=== PATIENT | female | born 1940 | race Caucasian/White ===

== ENCOUNTER 2023-02-14 14:52 | Inpatient (IN) | payer MEDICARE, SELFPAY ==
[2023-02-14] VITALS (47 sets, daily range): BP systolic 120–169; BP diastolic 51–107; PULSE 56–150; RESP 2–40; TEMP 37.3–37.6; O2SAT 87–96
--- NOTE | 2023-02-14 15:15 | RT.EKG_ITS ---
APPROVED REPORT Exam: Resting ECG Reason for Exam: dyspnea Patient Location: E HR:77 bpm ECG Measurements Heart Rate 77 AXIS HI [id number] P [id number] QRSd 94 QRS 204 QT 357 T 2 QTc 404 Conclusion Afib/flut and V-paced complexes...other complexes, A-rate>240 Right axis deviation...QRS axis ( 91,269) Repol abnrm suggests ischemia, anterolateral...ST dep, T neg, I aVL V2-V6 Borderline ST elevation, lateral leads...ST >0.06mV, I aVL V5 V6
--- NOTE | 2023-02-14 15:20 | NUR.NOTE ---
Nursing Note: O2 sat 88% on RA. Pt placed on 2L NC and 93% at this time
--- NOTE | 2023-02-14 15:31 | W.ED.GENAD ---
Discharge Plan Disposition Patient Disposition: Admit to [facility] Condition: Serious Discharge Details Chief Complaint: SOB Clinical Impression: Hypoxia, Pneumonia, Shortness of breath Primary Care Provider: David Rivera ED Provider: Fidel Perez Raymond Meds and New Rx's Prescriptions: No Action atorvastatin [Lipitor] 80 mg Tablet 80 mg PO QHS miconazole nitrate 2 % Powder TOPICAL QSHIFT cyanocobalamin (vitamin B-12) 1,000 mcg Tablet 1,000 mcg PO QDAY docusate sodium 50 mg Capsule PO QDAY diltiazem HCl 360 mg Capsule,Extended Release 24hr 360 mg PO QDAY levothyroxine 100 mcg Tablet 100 mcg PO QDAY pantoprazole [Protonix] 40 mg Tablet,Delayed Release (Dr/Ec) 40 mg PO QHS metoprolol tartrate 50 mg Tablet 50 mg PO BID digoxin 125 mcg (0.125 mg) Tablet 125 mcg PO QDAY ferrous sulfate 324 mg (65 mg iron) Tablet,Delayed Release (Dr/Ec) PO QDAY apixaban 5 mg Tablet 5 mg PO BID Medical Decision Making 82 yo female who was sent to [facility] rehab from a stay at [facility] per health and rehab records comes in with cc of cough for a day and shortness of breath and today oxygen saturations were around 88%. PAtient arrives hypoxic to 88% on room air, unclear what her baseline is, is 95% on NC. She has her eyes closed during the entire h and p. She doesn't provide much information other than answering some questions with 1-2 word answers. She answers no when I ask her if she knows where she is or the year. She is able to move both arms and legs though minimally due to weakness. She has wheezing and rhonchi in both lungs on exam. No appreciable jvd, soft nontender abdomen. Given her age and presentation will proceed with ekg/troponin, probnp, cmp, cbc, portable chest and also trial duoneb. If no significant findings on this initial workup will consider obtaining cta for pe if renal function is adequate though she has no evidence of dvt on exam. Records from rehab show she is dnr and will attempt to get records from [facility] as well d/c summary from [facility] on 02/03 notes she was admitted for just over a month after having a cva. She has a hx of prior cva's, htn, cad, afib, tachybradycardia syndrome s/p ppm. 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 D/c summary noted she was altert and oriented on d/c with severe left hemineglect and weakness and would speak in 1-2 word sentences which is how she presents today. Labs show mild increase in troponin, probnp over 5000, wbc of 17. Xray not clear if infiltrates vs scarring vs atelectasis, will proceed with cta of the chest. cta shows likely bilateral infiltrates, zosyn ordered, and question of edema. She was given 20mg lasix earlier with good urinary output. She is hemodynamically stable, still requiring oxygen, will discuss with hospitalist about admission Differential Diagnosis Differential Diagnosis: pneumonia, covid, asthma Imaging Data Radiologic Study: Attestation: I personally reviewed and interpreted this imaging study as follows: Imaging: X-Ray My impression: no acute findings Radiologic Study #2: Attestation: I personally reviewed and interpreted this imaging study as follows: Imaging: CT Scan Radiologist's impression: 1. No evidence of pulmonary embolus 2. Scattered diffuse bilateral infiltrates suggesting infectious pneumonitis 3. Peribronchovascular thickening and interlobular septal thickening in the lower lungs which could reflect interstitial pulmonary edema and/or bronchiolitis 4. Cardiomegaly with chronic osseous and atherosclerotic changes as described Lab Data Lab results reviewed: Yes I reviewed the patient's lab results. ECG Data Attestation: I personally reviewed and interpreted this ECG (s) as follows: Prior ECG tracings: not available for review Interpretation: afib, v paced, rate of 77, no stemi HPI General Mode of arrival: EMS. Date/Time Provider Initiated Documentation: 02/14/23 14:55. Information obtained by: EMS. History of Present Illness 82 year old F presents to the emergency department with the chief complaint of cough and dyspnea, described as moderate, Patient started experiencing this day(s) (1) and it has been constant. No relieving factors improve symptom(s), No exacerbating factors reported . Patient notes denies fever/chills. Patient did receive the following treatments prior to arrival, none Related Data Home Medications Medication Instructions Recorded Confirmed apixaban 5 mg tablet 5 mg PO BID 02/14/23 02/14/23 atorvastatin 80 mg tablet (Lipitor) 80 mg PO QHS 02/14/23 02/14/23 cyanocobalamin (vitamin B-12) 1,000 mcg PO QDAY 02/14/23 02/14/23 1,000 mcg tablet digoxin 125 mcg (0.125 mg) tablet 125 mcg PO QDAY 02/14/23 02/14/23 diltiazem HCl 360 mg 360 mg PO QDAY 02/14/23 02/14/23 capsule,extended release 24 hr docusate sodium 50 mg capsule mg PO QDAY 02/14/23 ferrous sulfate 324 mg (65 mg mg PO QDAY 02/14/23 iron) tablet,delayed release levothyroxine 100 mcg tablet 100 mcg PO QDAY 02/14/23 02/14/23 metoprolol tartrate 50 mg tablet 50 mg PO BID 02/14/23 02/14/23 miconazole nitrate 2 % topical topical QSHIFT 02/14/23 powder pantoprazole 40 mg tablet,delayed 40 mg PO QHS 02/14/23 02/14/23 release (Protonix) Allergies Allergy/AdvReac Type Severity Reaction Status Date / Time morphine Allergy Unverified 02/14/23 15:31 shellfish derived Allergy Unverified 02/14/23 15:31 tositumomab iodine-131 Allergy Unverified 02/14/23 15:31 General Stated Complaint: SOB SALOMÓN: 3 Review of Systems All systems reviewed & are unremarkable except as noted in HPI and below Constitutional Constitutional: Denies chills and Denies fever(s) Cardiovascular Cardiovascular: Denies chest pain Gastrointestinal Gastrointestinal: Denies abdominal pain and Denies vomiting Integumentary/Breasts Skin/Breast: Denies rash PFSH All Active Problems (Updated 02/14/23 @ 18:58 by Fidel Perez MD) Hypoxia (Acute) Pneumonia (Acute) Shortness of breath (Acute) Social History Smoking/Tobacco Use Status: Never Smoking risk assessment performed?: Yes Alcohol Intake: never Substance use type: does not use Do you feel safe at home: Yes Do you feel safe in your relationship?: Yes Exam Const General: no acute distress Orientation: alert HENRI Head: normal to inspection Ears: external ears normal General nose exam: external nose normal Mouth: moist mucous membranes Eyes General: appearance normal, both eyes and all related structures Neck Neck: normal visual inspection Resp Auscultation: rhonchi and wheezes Cardio Rate: regular rate Skin General skin exam: no rashes or lesions noted Neuro General: other (eyes closed, will answer some questions with 1-2 word answers) Extrem General: normal to inspection Psych Mental Status: mental status grossly normal Course Vital Signs Vital signs: Vital Signs Temperature 37.6 C 02/14/23 15:13 Pulse 74 02/14/23 15:13 Blood Pressure 162/61 H 02/14/23 15:13 Pulse Oximetry 88 L 02/14/23 15:13 Temperature 37.6 C 02/14/23 15:13 Temperature Source Rectal 02/14/23 15:13 Pulse 74 02/14/23 15:13 Blood Pressure 162/61 H 02/14/23 15:13 Blood Pressure Position Supine 02/14/23 15:13 Pulse Oximetry 88 L 02/14/23 15:13 Oxygen Delivery Method Room Air 02/14/23 15:13 Oxygen Flow Rate 0 02/14/23 15:13 Lab/Test Results Lab/Test Results: 02/14/23 15:24 Blood Blood Culture - Pending 02/14/23 15:24 Blood Blood Culture - Pending
[2023-02-14 15:34] LABS: BE (Venous) 4 mmol/L (-2-3); HCO3 (Venous) 29 mmol/L (23-28); O2 Sat (Venous) 96 %; TCO2 (Venous) 26 mmol/L (24-29); pCO2 (Venous) 45 mmHg (41-51); pH (Venous) 7.42 (7.31-7.41); pO2 (Venous) 85 mmHg
[2023-02-14 15:43] LABS: Abs Immature Grans 1.63 10^3/uL (0.0-0.06); HCT 40.2 % (36.0-46.0); HGB 12.2 g/dL (11.2-15.7); MCH 27.2 pg (27.0-33.0); MCHC 30.3 % (32.0-36.0); MCV 90 fL (80-95); MPV 10.4 fL (8.0-11.0); Platelet Count 212 10^3/uL (130-400); RBC 4.48 10^6/uL (3.93-5.22); RDW 19.6 % (11.7-14.6); RDW-SD 64.2 fL; WBC 17.41 10^3/uL (4.4-10.8)
--- NOTE | 2023-02-14 15:46 | DI.RAD_ITS ---
Exam(s) XR PORTABLE CHEST AP EXAM: XR PORTABLE CHEST AP CLINICAL HISTORY: cough TECHNIQUE: 2D digital imaging was performed. COMPARISON: No exams were available for comparison FINDINGS: Exam limited by poor pulmonary inflation. LUNGS: Question patchy bilateral infiltrates versus chronic interstitial changes.. No pleural abnorm ality seen. HEART: Mildly enlarged. Mitral annular calcification. Pacemaker. Status post CABG. AORTA: Normal diameter. BONES: Unremarkable for age. Sternal wires. Severe degenerative changes in the spine. Soft tissues: Unremarkable. Surgical clips right upper quadrant. IMPRESSION: Question of patchy bilateral infiltrates versus chronic interstitial changes. DATA REPOSITORY: RADIATION DOSE DELIVERED:
[2023-02-14 15:49] LABS: INR 1.2 (0.9-1.1); PTT Activated 33.4 sec (21.5-31.9); Prothrombin Time 12.1 sec (9.3-11.0)
[2023-02-14 15:52] LABS: Absolute Lymphocyte Count 1.22 10^3/uL (1.2-3.4); Absolute Monocyte Count 1.74 10^3/uL (0.1-0.8); Absolute Neutrophil Count 13.58 10^3/uL (1.2-6.7); Bands % 18; Diff Comment Manual Differential; Metamyelocytes % 4; Myelocytes % 1
[2023-02-14 15:53] LABS: Anisocytosis 1+; Polychromasia Present
[2023-02-14 16:00] LABS: ALT 20 U/L (14-59); AST 18 U/L (15-37); Albumin 2.8 g/dL (3.4-5.0); Alkaline Phosphatase 110 U/L (46-116); Anion Gap 9.6 mmol/L (3-11); BUN 32 mg/dL (7-18); Bilirubin, Total 0.7 mg/dL (0.2-1.0); CO2 29.4 mmol/L (21.0-32.0); CREATININE 1.3 mg/dL (0.55-1.02); Calcium 9.6 mg/dL (8.5-10.1); Chloride 105 mmol/L (98-107); Estimated GFR 40.55 (mL/min/1.73m2); Glucose 185 mg/dL (74-106); NT-proBNP 5711 pg/mL (<300); Potassium 3.4 mmol/L (3.5-5.1); Sodium 144 mmol/L (136-145); TSH (W/Ref FT4) 1.02 uIU/mL (0.36-3.74); Total Protein 7.3 g/dL (6.4-8.2)
--- NOTE | 2023-02-14 16:00 | DI.CT_ITS ---
Exam(s) CT CHEST PE CTA EXAM: CT CHEST PE CTA CLINICAL HISTORY: ?pe, hypoxia. TECHNIQUE: Imaging Protocol: Axial CT angiography was performed with multi-slice acquisition and mu lti-planar and/or 3D reconstructions. CONTRAST MATERIAL: Intravenous: Omnipaque 350 contrast volume:100 mL COMPARISON: CR XR PORTABLE CHEST AP from 02/14/2023 FINDINGS: The examination is limited due to patient motion artifact. Tracheobronchial tree: Patent where visualized. Pulmonary parenchyma: Multifocal ground-glass infiltrates are seen. Centrilobular emphysema is prese nt. Dependent infiltrates are seen in the lung bases. This may represent atelectasis or pneumonia. Pulmonary Arteries: No evidence of filling defect to suggest pulmonary emboli. Mediastinum and Araceli: No dominant adenopathy or fluid collection. The esophagus is unremarkable. Visualized thyroid gland: Unremarkable. Pleura: No effusion or pneumothorax. Heart: Cardiomegaly. Coronary artery calcifications and/or stents are present. There is calcificati on of the mitral valve. No pericardial effusion. Aorta: Thoracic aorta non-dilated. No evidence of dissection. Atherosclerosis is present. Upper abdomen: Status post cholecystectomy. Tubes, Catheters, and Lines: Cardiac pacing device is present. Soft tissues: Unremarkable. Bones: Within normal limits for the patient's age. IMPRESSION: 1. No evidence of pulmonary embolism, thoracic aortic dissection or aneurysm. 2. Diffuse multifocal ground-glass infiltrates suspicious for infectious pneumonia. 3. Cardiomegaly. RADIATION DOSE DELIVERED: 319.92mGy.cm Total DLP DATA REPOSITORY: All CT scans at this facility are submitted to the National Radiology Data Registry (NRDR) Dose Index Registry (DIR) with the [employer] ([employer]). RADIATION OPTIMIZATION: All CT scans at this facility use at least one of these dose optimization te chniques: automated exposure control; mA and/or kV adjustment per patient size (includes targeted exa ms where dose is matched to clinical indication); or iterative reconstruction.
[2023-02-14 16:04] LABS: Troponin I 96 ng/L (<or=60)
[2023-02-14 16:06] LABS: Procalcitonin 0.4 ng/mL
[2023-02-14 16:25] LABS: COVID-19 PCR Negative (Negative); Influenza A PCR Negative (Negative); Influenza B PCR Negative (Negative); RSV PCR Negative (Negative); Source Nasopharynx
[2023-02-14] MEDS: Furosemide 20 MG/2 ML VIAL IVP (16:29)
[2023-02-14] MEDS: Normal Saline - Diluent 50 ML VIAL IJ (17:27)
[2023-02-14] MEDS: Omnipaque 350 MG/ML 100 ML BTL IJ (17:29)
--- NOTE | 2023-02-14 18:25 | DI.VRAD_ITS ---
PROCEDURE INFORMATION: Exam: CTA Chest With Contrast Exam date and time: 02/14/2023 5:12 PM Age: 82 years old Clinical indication: Other: ? Pe, hypoxia TECHNIQUE: Imaging protocol: Computed tomographic angiography of the chest with contrast. 3D rendering (Not supervised by radiologist): MIP and/or 3D reconstructed images were created by the technologist. Radiation optimization: All CT scans at this facility use at least one of these dose optimization techniques: automated exposure control; mA and/or kV adjustment per patient size (includes targeted exams where dose is matched to clinical indication); or iterative reconstruction. Contrast material: OMNIPAQUE 350; Contrast volume: 100 ml; Contrast route: INTRAVENOUS (IV); COMPARISON: CR XR PORTABLE CHEST AP 02/14/2023 3:18 PM FINDINGS: Tubes, catheters and devices: Cardiac pacemaker is in place. Pulmonary arteries: Normal. No pulmonary emboli. Aorta: Moderate atherosclerotic calcification noted throughout the aorta. No evidence of aortic aneurysm or dissection. Lungs: Mild changes of emphysema noted primarily in the upper lungs. Small scattered areas of alveolar infiltrate are noted throughout both lungs. Peribronchovascular thickening noted in the lower lungs. There is dense consolidative atelectasis in the dependent portion of the left lower lobe. Pleural spaces: Unremarkable. No pneumothorax. No pleural effusion. Heart: There is mild cardiomegaly. There is dense calcification of the mitral annulus. Coronary arteries: Moderate coronary artery calcification. Lymph nodes: Unremarkable. No enlarged lymph nodes. Bones/joints: Degenerative changes and osteophyte formation noted throughout the spine. Soft tissues: Unremarkable. IMPRESSION: 1. No evidence of pulmonary embolus 2. Scattered diffuse bilateral infiltrates suggesting infectious pneumonitis 3. Peribronchovascular thickening and interlobular septal thickening in the lower lungs which could reflect interstitial pulmonary edema and/or bronchiolitis 4. Cardiomegaly with chronic osseous and atherosclerotic changes as described Dictated and Authenticated by: Abebe Kuhn MD. Ordering:ARNULFO Parra MD
[2023-02-14] MEDS: PIPERACILLIN/TAZO 4.5 GM in Normal Saline 100 ML IVPB (19:20)
[2023-02-14 19:42] LABS: Troponin I 97 ng/L (<or=60)
--- NOTE | 2023-02-14 19:51 | W.PM.HP.N ---
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 She ignores her left side. She has been hospitalized and in rehab just recently now with cough and progressive symptoms with bilateral pneumonia by CT. She also may have some interstitial edema and does have a history of possible diastolic dysfunction heart failure though the ED provider did see an echocardiogram revealing mostly preserved left ventricular ejection fraction. She does have significant valvular disease and because of her pneumonia may have increased troponin secondary to strain along with hypoxemia. She will be treated aggressively for hospital-acquired pneumonia with vancomycin pharmacy dosing and cefepime avoid Zosyn with vancomycin with increased chance of renal dysfunction. She already has slight increase in her baseline creatinine. Oxygen supplementation with nebulizers if needed. She will be gently hydrated watch for fluid overload with IV Lasix as needed. Son understands prognosis with the patient already having significant heart disease and now with pneumonia status post devastating CVA with patient living independently prior to this recent admission with stroke. She is a DNR/DNI. (2) Hypoxia: Start date: 02/14/23 Status: Acute Assessment and plan: Secondary to respiratory status with pneumonia possible interstitial edema. Oxygen supplementation to keep pulse oximeter above 90%. Comfort measures. Patient is allergic to morphine and this will be avoided. (3) Elevated troponin level not due to acute coronary syndrome: Start date: 02/14/23 Status: Acute Assessment and plan: Only slight elevation in troponins with patient having significant history of CAD without evidence of acute ischemia. We will attempt to keep her heart rate controlled despite her respiratory distress. Son understands prognosis is poor with recent events and now hospital-acquired pneumonia. Trend troponins. Patient will continue on Eliquis. Attempt heart rate control with gentle hydration and oral medications. (4) CAD (coronary artery disease), [place] coronary artery: Assessment and plan: Slight elevation in troponins but this is most likely secondary to heart strain with pneumonia. Trend troponins and attempt heart rate control as well as watch closely for heart failure which is usually diastolic dysfunction according to son with significant mitral valve disease. Patient is on Eliquis which will be continued. (5) Atrial fibrillation with controlled ventricular rate: Assessment and plan: Patient had slight tachycardia but usually is rate controlled with significant dosing of Lanoxin, metoprolol and Cardizem as an outpatient. Split dose of Cardizem at 90 mg every 6 hours and continue metoprolol twice daily along with Lanoxin daily. Patient was given IV diltiazem in the ED and gentle IV hydration might help her tachycardia. (6) Hypothyroidism (acquired): Assessment and plan: Stable on supplement which will be continued the same. History of Present Illness History of Present Illness Chief Complaint: Cough with hypoxemia and tachypnea Narrative: This is an 82-year-old female patient who recently was at [facility] with a stroke involving the right MCA with a thrombectomy once and then recurrent thrombus and left side flaccidity not moving her left arm or leg and ignoring her left side. She has been in rehab at a local facility and 3 days prior to admission began to have a cough with the day prior to admission having tachypnea with cough and hypoxemia on the day of admission. In the ED she did have evaluation was found to have bilateral pneumonia with question of interstitial pulmonary edema and did receive Lasix in the ED. She does appear dry with a creatinine higher than her baseline and clinically appears dry. She is pleasantly confused and attended by her middle son who is concerned about her course after her stroke having been living independently prior to her CVA and admission to [facility] about a month ago and now not recovering well with hospital-acquired pneumonia prompting this admission. She is a DNR/DNI and he does understand we will need to treat reversible issues and that she may need some fluid even though he is concerned about fluid overload which may be secondary to diastolic dysfunction with her severe mitral valve disease. She also has chronic atrial fibrillation and in the ED was becoming slightly tachycardic with her diltiazem split dosed. She is allergic to morphine which will be avoided. We will keep her comfortable and possibly need to use Ativan if she becomes distressed. She has a Yuan catheter in place and can receive Lasix as needed as we try to gently rehydrate following clinical status and labs closely. She is tugging with breathing but speaking comfortably though she is confused because she is is still at [facility]. Her past medical problems include significant CAD status post bypass surgery with mitral valve disease which has not been surgically treated. She did have a slight bump in her troponins which will be trended most likely secondary to cardiac strain with her pneumonia. She also has a pacemaker for tachybradycardia syndrome. As stated she is a DNR/DNI but not comfort measures only at this time. Review of Systems Narrative: 13 point review of systems negative for any peripheral edema, she has had no fever or rigors otherwise as per present illness or unrevealing. Patient is unable to offer further history with her son offering history at this time. PFSH All Active Problems (Updated 02/14/23 @ 23:17 by Gabino Giordano) Elevated troponin level not due to acute coronary syndrome (Acute) CVA (cerebral vascular accident) (Chronic) Hypoxia (Acute) Pneumonia (Acute) Shortness of breath (Acute) Medical History (Updated 02/14/23 @ 23:17 by Gabino Giordano) Atrial fibrillation with controlled ventricular rate CAD (coronary artery disease), [place] coronary artery HTN (hypertension) Hypothyroidism (acquired) Tachy-inessa syndrome Social History Smoking/Tobacco Use Status: Never Smoking risk assessment performed?: Yes Alcohol Intake: never Substance use type: does not use Do you feel safe at home: Yes Do you feel safe in your relationship?: Yes Meds Allergies and Home Medications Allergies Allergy/AdvReac Type Severity Reaction Status Date / Time morphine Allergy Unverified 02/14/23 15:31 shellfish derived Allergy Unverified 02/14/23 15:31 tositumomab iodine-131 Allergy Unverified 02/14/23 15:31 Home Medications Medication Instructions Recorded Confirmed Type apixaban 5 mg tablet 5 mg PO BID 02/14/23 02/14/23 History atorvastatin 80 mg tablet (Lipitor) 80 mg PO QHS 02/14/23 02/14/23 History cyanocobalamin (vitamin B-12) 1,000 mcg PO QDAY 02/14/23 02/14/23 History 1,000 mcg tablet digoxin 125 mcg (0.125 mg) tablet 125 mcg PO QDAY 02/14/23 02/14/23 History diltiazem HCl 360 mg 360 mg PO QDAY 02/14/23 02/14/23 History capsule,extended release 24 hr docusate sodium 50 mg capsule mg PO QDAY 02/14/23 History ferrous sulfate 324 mg (65 mg mg PO QDAY 02/14/23 History iron) tablet,delayed release levothyroxine 100 mcg tablet 100 mcg PO QDAY 02/14/23 02/14/23 History metoprolol tartrate 50 mg tablet 50 mg PO BID 02/14/23 02/14/23 History miconazole nitrate 2 % topical topical QSHIFT 02/14/23 History powder pantoprazole 40 mg tablet,delayed 40 mg PO QHS 02/14/23 02/14/23 History release (Protonix) Exam Narrative Exam Narrative: General: Patient appears older than stated age, moderately obese lying in bed with the head tilted slightly backward and mouth open mouth breathing with talking respirations. She is not having a cough. She is alert and oriented to person but denies #and that she is at the hospital but thought she was at [facility] instead of at [facility]. She is in moderate distress with her breathing. She is ignoring her left side. She is restless moving her right upper and lower extremities. HEENT: Normocephalic, eyes with pupils equal and reactive light symmetrically, extraocular movement tact and sclera anicteric. Left eye is slightly wandering when first opened. Oropharynx with dry mucosa and poor dentition with missing teeth. Patient is mouth breathing. Neck: Supple without JVD. No palpable carotid thrills. Back: Kyphotic without CVA tenderness. Lungs: Diffuse inspiratory rhonchi and coarse crackles without focalizing but no increased expiratory phase and no expiratory wheeze. Decreased aeration diffusely. Patient is tachypneic. She has occasional moist cough. Breast: Exam deferred. Heart: Irregularly irregular rhythm with tachycardia at the time my exam, 3/6 to 4/6 holosystolic murmur over apex and left sternal border. Well-healed scars over the sternum and left upper chest with palpable subcutaneous pacemaker left upper chest. No gallop appreciated. Abdomen: Slightly protuberant, soft with slight tenderness to palpation over the lower abdomen but no palpable masses and no rebound. Slight guarding right lower quadrant. Bowel sounds positive but decreased diffusely. No tympany to percussion. Genitalia/rectal:: Exam deferred. Patient does have Yuan catheter in place. Extremities: Without clubbing, cyanosis or grossly pitting edema. 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 Peripheral pulses decreased and irregular pulse. Fair cap refill. Arthritic changes of joints. Skin: Normal color, warm and dry without tenting. Neuro: Patient is moving her left side and flaccid over the left side moving her right upper and lower extremity irregularly but appearing uncomfortable. Cranial nerves II through XII appear to be grossly intact. No Babinski's. Psych: Flattened affect with mood not assessable with patient's confusion and acute respiratory distress. No abnormal thought processes. Remote and recent memory not testable with patient acutely ill. Results Labs 02/14/23 15:19 02/14/23 15:19 Labs: Laboratory Results - last 24 hr 02/14/23 02/14/23 02/14/23 15:19 15:19 15:19 WBC 17.41 H RBC 4.48 Hgb 12.2 Hct 40.2 MCV 90 MCH 27.2 MCHC 30.3 L RDW 19.6 H Plt Count 212 MPV 10.4 Immature Gran % See Differential Neutrophils % 60.0 Band Neutrophils % 18 Lymphocytes % 7.0 Monocytes % 10.0 Eosinophils % 0.0 Basophils % 0.0 Metamyelocytes % 4 Myelocytes % 1 Nucleated RBC % 0.0 Absolute Neutrophils 13.58 H Absolute Lymphocytes 1.22 Absolute Monocytes 1.74 H Absolute Eosinophils 0.00 Absolute Basophils 0.00 RBC Morphology See Below Polychromasia Present Anisocytosis 1+ PT INR APTT VBG pH VBG pCO2 VBG pO2 VBG HCO3 VBG Total CO2 VBG O2 Saturation VBG Base Excess Sodium 144 Potassium 3.4 L Chloride 105 Carbon Dioxide 29.4 Anion Gap 9.6 BUN 32 H Creatinine 1.3 H Est GFR (CKD-EPI 2020) 40.55 Glucose 185 H Calcium 9.6 Magnesium Total Bilirubin 0.7 AST 18 ALT 20 Alkaline Phosphatase 110 Troponin I 96 H* NT-Pro-B Natriuret Pep 5711 H Total Protein 7.3 Albumin 2.8 L Procalcitonin 0.4 TSH 1.02 COVID-19 Source SARS-CoV-2 (PCR) Influenza Type A (PCR) Influenza Type B (PCR) RSV (PCR) 02/14/23 02/14/23 02/14/23 15:19 15:19 15:19 WBC RBC Hgb Hct MCV MCH MCHC RDW Plt Count MPV Immature Gran % Neutrophils % Band Neutrophils % Lymphocytes % Monocytes % Eosinophils % Basophils % Metamyelocytes % Myelocytes % Nucleated RBC % Absolute Neutrophils Absolute Lymphocytes Absolute Monocytes Absolute Eosinophils Absolute Basophils RBC Morphology Polychromasia Anisocytosis PT 12.1 H INR 1.2 H APTT 33.4 H VBG pH 7.42 H VBG pCO2 45 VBG pO2 85 VBG HCO3 29 H VBG Total CO2 26 VBG O2 Saturation 96 VBG Base Excess 4 H Sodium Potassium Chloride Carbon Dioxide Anion Gap BUN Creatinine Est GFR (CKD-EPI 2020) Glucose Calcium Magnesium 2.0 Total Bilirubin AST ALT Alkaline Phosphatase Troponin I NT-Pro-B Natriuret Pep Total Protein Albumin Procalcitonin TSH COVID-19 Source SARS-CoV-2 (PCR) Influenza Type A (PCR) Influenza Type B (PCR) RSV (PCR) 02/14/23 02/14/23 15:38 19:15 WBC RBC Hgb Hct MCV MCH MCHC RDW Plt Count MPV Immature Gran % Neutrophils % Band Neutrophils % Lymphocytes % Monocytes % Eosinophils % Basophils % Metamyelocytes % Myelocytes % Nucleated RBC % Absolute Neutrophils Absolute Lymphocytes Absolute Monocytes Absolute Eosinophils Absolute Basophils RBC Morphology Polychromasia Anisocytosis PT INR APTT VBG pH VBG pCO2 VBG pO2 VBG HCO3 VBG Total CO2 VBG O2 Saturation VBG Base Excess Sodium Potassium Chloride Carbon Dioxide Anion Gap BUN Creatinine Est GFR (CKD-EPI 2020) Glucose Calcium Magnesium Total Bilirubin AST ALT Alkaline Phosphatase Troponin I 97 H* NT-Pro-B Natriuret Pep Total Protein Albumin Procalcitonin TSH COVID-19 Source Nasopharynx SARS-CoV-2 (PCR) Negative Influenza Type A (PCR) Negative Influenza Type B (PCR) Negative RSV (PCR) Negative Last Vital Signs Temp 37.6 C 02/14/23 15:13 Pulse 75 02/14/23 19:16 Resp 20 02/14/23 15:53 BP 140/60 02/14/23 19:16 Pulse Ox 92 02/14/23 19:16 Time Spent Time spent with Patient: >75 minutes Time was spent: preparing to see the patient(eg.review tests), obtaining and/or reviewing separately otained hiistory, ordering medications,tests, procedures, referring, communicating with other health home care liaison, counseling the patient (Son) and care coordination
--- NOTE | 2023-02-14 22:15 | NUR.NOTE ---
Addendum entered by Chary Prieto 02/14/23 22:33: pt placed on gear repairer, afib noted with rate 120's-130's, Dr Perez made aware, med orders rec'd. Original Note: Nursing Note: report from FRANCES [place]
[2023-02-14] MEDS: dilTIAZem 25 MG/5 ML VIAL 10 MG IVP (22:50)
--- NOTE | 2023-02-14 23:09 | NUR.NOTE ---
Nursing Note: PO cardizem not given in ER due to pt condition and concern for pt difficulty swallowing. Notified ED provider and notified receiving nurse upon pt transport.
[2023-02-15] VITALS (17 sets, daily range): BP systolic 127–146; BP diastolic 60–74; PULSE 69–103; RESP 1–20; TEMP 36.1–36.7; O2SAT 89–99
[2023-02-15] MEDS: Atorvastatin 40 MG TAB 80 MG PO ×2 (00:30→19:57)
[2023-02-15] MEDS: Pantoprazole 40 MG TABCR PO ×2 (00:30→21:55)
[2023-02-15 00:48] LABS: Troponin I 93 ng/L (<or=60)
[2023-02-15] MEDS: POTASSIUM CHLORIDE/0.9% NACL 1,000 ML 80 MEQ IV (01:20)
[2023-02-15] MEDS: Metoprolol 50 MG TAB PO ×4 (01:45→19:57)
[2023-02-15] MEDS: VANCOMYCIN 1,250 MG in Normal Saline 250 ML 166.667 MG IVPB (02:56)
[2023-02-15 04:31] LABS: HCT 36.2 % (36.0-46.0); HGB 11.2 g/dL (11.2-15.7); MCHC 30.9 % (32.0-36.0); MCV 91 fL (80-95); MPV 10.4 fL (8.0-11.0); Platelet Count 184 10^3/uL (130-400); RDW 19.3 % (11.7-14.6); RDW-SD 64.5 fL; WBC 12.95 10^3/uL (4.4-10.8)
[2023-02-15] MEDS: dilTIAZem 60 MG TAB 90 MG PO ×3 (04:37→21:55)
[2023-02-15] MEDS: Levothyroxine 100 MCG TAB PO (04:37)
[2023-02-15 04:40] LABS: ALT 14 U/L (14-59); AST 15 U/L (15-37); Albumin 2.5 g/dL (3.4-5.0); Alkaline Phosphatase 101 U/L (46-116); Anion Gap 10.6 mmol/L (3-11); BUN 34 mg/dL (7-18); Bilirubin, Total 0.8 mg/dL (0.2-1.0); CO2 29.4 mmol/L (21.0-32.0); CREATININE 1.4 mg/dL (0.55-1.02); Chloride 108 mmol/L (98-107); Glucose 184 mg/dL (74-106); Magnesium 2.1 mg/dL (1.8-2.4); Potassium 3.4 mmol/L (3.5-5.1); Sodium 148 mmol/L (136-145); Total Protein 6.6 g/dL (6.4-8.2)
[2023-02-15 04:47] LABS: Troponin I 92 ng/L (<or=60)
--- NOTE | 2023-02-15 08:35 | INITIAL_ITS ---
- If Service Date Differs Date of service: 02/15/23 Time of Service: 08:35 Care Management Initial Assess REASON FOR HOSPITALIZATION:: Pneumonia, Hypoxia, Elevated troponin PAST MEDICAL HISTORY/PAST SURGICAL HISTORY:: Medical History (Updated 02/14/23 @ 23:17 by Gabino Giordano). Atrial fibrillation with controlled ventricular rate. CAD (coronary artery disease), [place] coronary artery. HTN (hypertension). Hypothyroidism (acquired). Tachy-inessa syndrome PREVIOUS FUNCTIONAL STATUS/SOCIAL/FAMILY SUPPORTS:: Resides at [facility], originally from [place], [place]. Sons Shahid and Gregor as main contacts. CURRENT FUNCTIONAL STATUS:: Son at bedside, per MD anticipate Aide [facility] . Remains on 2L [place] O2. Anticipate speech consult when available. ADVANCE DIRECTIVES:: [facility] on file Has patient been provided with info about the portal/API?: No Did the patient sign up for the portal?: No CODE STATUS:: DNR/DNI INSURANCE COVERAGE / FINANCIAL ISSUES:: Medicare. AARP CURRENT HOME/COMMUNITY SERVICES/EQUIPMENT:: SNF: [facility] PRIMARY CARE PHYSICIAN:: David Rivera POTENTIAL DISCHARGE NEEDS:: Coordinated return to SNF PATIENT/FAMILY EDUCATION NEEDS:: Review of discharge instructions, discuss Ask Me Three. ANTICIPATED BARRIERS TO DISCHARGE:: None identified. TRANSPORTATION:: W/C Van or EMS PLAN:: [facility] MD. She will transport via W/C van or EMS, coordinated by DANA.
[2023-02-15] MEDS: Digoxin 0.125 MG TAB PO (09:26)
[2023-02-15] MEDS: Ferrous Sulfate 325 MG TAB PO (09:26)
[2023-02-15] MEDS: Apixaban 5 MG TAB PO ×2 (09:26→19:57)
[2023-02-15] MEDS: Cyanocobalamin 500 MCG TAB 1000 MCG PO (09:26)
[2023-02-15] MEDS: CEFEPIME 2 GM in Normal Saline 100 ML IVPB ×2 (09:28→19:56)
[2023-02-15] MEDS: Furosemide 20 MG/2 ML VIAL IVP (12:38)
[2023-02-15] MEDS: Normal Saline Flush 10 ML SYR IVP ×2 (12:38→19:57)
[2023-02-15] MEDS: Nystatin 500000 UNITS/5 ML SUSP 5ML CUP PO ×2 (13:44→19:57)
--- NOTE | 2023-02-15 13:58 | PGE_ITS ---
Date of Service Date of service: 02/15/23 Time of Service: 13:58 Assessment and Plan Assessment and plan (1) Pneumonia: Status: Acute Assessment and plan: continue day 2 cefepime and vanco while awaiting cultures scheduled duonebs wean oxygen as able. (2) Elevated troponin level not due to acute coronary syndrome: Status: Acute Assessment and plan: Only slight elevation in troponins with patient having significant history of CAD without evidence of acute ischemia and remained flat continue beta apolinar, statin and apixaban. no further cardiac work up needed at this time (3) CAD (coronary artery disease), [place] coronary artery: Assessment and plan: Slight elevation in troponins but this is most likely secondary to heart strain with pneumonia. Monitor closely for heart failure which is usually diastolic dysfunction with significant mitral valve disease. (4) Atrial fibrillation with controlled ventricular rate: Assessment and plan: continue Lanoxin, metoprolol and Cardizem as an outpatient. Split dose of Cardizem at 90 mg every 6 hours and continue metoprolol twice daily along with Lanoxin daily. Patient was given IV diltiazem in the ED (5) Hypothyroidism (acquired): Assessment and plan: Stable on supplement which will be continued the same. discussed with DR Cisneros Subjective Subjective Patient reports: no new complaints Interval history since last seen: poor po intake and tolerance of feeding. on 2 liter nc oxygen to maintain her sats, white coat on tongue Exam Const General: comfortable and no acute distress Nutritional Appearance: thin Orientation: alert HENMT Head: normal to inspection Ears: external ears normal General nose exam: external nose normal Mouth: abnormal oral mucosae (white coat on tongue) Eyes General: appearance normal, both eyes and all related structures Neck Neck: normal visual inspection and no JVD Resp Effort & Inspection: normal respiratory effort Auscultation: rhonchi lower bilaterally and no wheezes Cardio Rate: regular rate Skin General skin exam: no rashes or lesions noted Extrem General: other (left side flaccid) Objective Last Vital Signs Temp 36.6 C 02/15/23 11:18 Pulse 70 02/15/23 13:42 Resp 18 02/15/23 13:35 BP 127/60 02/15/23 13:42 Pulse Ox 97 02/15/23 13:34 Laboratory Results - last 24 hr 02/14/23 02/14/23 02/14/23 15:19 15:19 15:19 WBC 17.41 H RBC 4.48 Hgb 12.2 Hct 40.2 MCV 90 MCH 27.2 MCHC 30.3 L RDW 19.6 H Plt Count 212 MPV 10.4 Immature Gran % See Differential Neutrophils % 60.0 Band Neutrophils % 18 Lymphocytes % 7.0 Monocytes % 10.0 Eosinophils % 0.0 Basophils % 0.0 Metamyelocytes % 4 Myelocytes % 1 Nucleated RBC % 0.0 Absolute Neutrophils 13.58 H Absolute Lymphocytes 1.22 Absolute Monocytes 1.74 H Absolute Eosinophils 0.00 Absolute Basophils 0.00 RBC Morphology See Below Polychromasia Present Anisocytosis 1+ PT INR APTT VBG pH VBG pCO2 VBG pO2 VBG HCO3 VBG Total CO2 VBG O2 Saturation VBG Base Excess Sodium 144 Potassium 3.4 L Chloride 105 Carbon Dioxide 29.4 Anion Gap 9.6 BUN 32 H Creatinine 1.3 H Est GFR (CKD-EPI 2020) 40.55 Glucose 185 H Calcium 9.6 Magnesium Total Bilirubin 0.7 AST 18 ALT 20 Alkaline Phosphatase 110 Troponin I 96 H* NT-Pro-B Natriuret Pep 5711 H Total Protein 7.3 Albumin 2.8 L Procalcitonin 0.4 TSH 1.02 COVID-19 Source SARS-CoV-2 (PCR) Influenza Type A (PCR) Influenza Type B (PCR) RSV (PCR) 02/14/23 02/14/23 02/14/23 15:19 15:19 15:19 WBC RBC Hgb Hct MCV MCH MCHC RDW Plt Count MPV Immature Gran % Neutrophils % Band Neutrophils % Lymphocytes % Monocytes % Eosinophils % Basophils % Metamyelocytes % Myelocytes % Nucleated RBC % Absolute Neutrophils Absolute Lymphocytes Absolute Monocytes Absolute Eosinophils Absolute Basophils RBC Morphology Polychromasia Anisocytosis PT 12.1 H INR 1.2 H APTT 33.4 H VBG pH 7.42 H VBG pCO2 45 VBG pO2 85 VBG HCO3 29 H VBG Total CO2 26 VBG O2 Saturation 96 VBG Base Excess 4 H Sodium Potassium Chloride Carbon Dioxide Anion Gap BUN Creatinine Est GFR (CKD-EPI 2020) Glucose Calcium Magnesium 2.0 Total Bilirubin AST ALT Alkaline Phosphatase Troponin I NT-Pro-B Natriuret Pep Total Protein Albumin Procalcitonin TSH COVID-19 Source SARS-CoV-2 (PCR) Influenza Type A (PCR) Influenza Type B (PCR) RSV (PCR) 02/14/23 02/14/23 02/15/23 15:38 19:15 00:25 WBC RBC Hgb Hct MCV MCH MCHC RDW Plt Count MPV Immature Gran % Neutrophils % Band Neutrophils % Lymphocytes % Monocytes % Eosinophils % Basophils % Metamyelocytes % Myelocytes % Nucleated RBC % Absolute Neutrophils Absolute Lymphocytes Absolute Monocytes Absolute Eosinophils Absolute Basophils RBC Morphology Polychromasia Anisocytosis PT INR APTT VBG pH VBG pCO2 VBG pO2 VBG HCO3 VBG Total CO2 VBG O2 Saturation VBG Base Excess Sodium Potassium Chloride Carbon Dioxide Anion Gap BUN Creatinine Est GFR (CKD-EPI 2020) Glucose Calcium Magnesium Total Bilirubin AST ALT Alkaline Phosphatase Troponin I 97 H* 93 H* NT-Pro-B Natriuret Pep Total Protein Albumin Procalcitonin TSH COVID-19 Source Nasopharynx SARS-CoV-2 (PCR) Negative Influenza Type A (PCR) Negative Influenza Type B (PCR) Negative RSV (PCR) Negative 02/15/23 02/15/23 02/15/23 04:12 04:12 04:12 WBC 12.95 H RBC 4.00 Hgb 11.2 Hct 36.2 MCV 91 MCH 28.0 MCHC 30.9 L RDW 19.3 H Plt Count 184 MPV 10.4 Immature Gran % Neutrophils % Band Neutrophils % Lymphocytes % Monocytes % Eosinophils % Basophils % Metamyelocytes % Myelocytes % Nucleated RBC % Absolute Neutrophils Absolute Lymphocytes Absolute Monocytes Absolute Eosinophils Absolute Basophils RBC Morphology Polychromasia Anisocytosis PT INR APTT VBG pH VBG pCO2 VBG pO2 VBG HCO3 VBG Total CO2 VBG O2 Saturation VBG Base Excess Sodium 148 H Potassium 3.4 L Chloride 108 H Carbon Dioxide 29.4 Anion Gap 10.6 BUN 34 H Creatinine 1.4 H Est GFR (CKD-EPI 2020) 37.10 Glucose 184 H Calcium 9.0 Magnesium 2.1 Total Bilirubin 0.8 AST 15 ALT 14 Alkaline Phosphatase 101 Troponin I 92 H* NT-Pro-B Natriuret Pep Total Protein 6.6 Albumin 2.5 L Procalcitonin TSH COVID-19 Source SARS-CoV-2 (PCR) Influenza Type A (PCR) Influenza Type B (PCR) RSV (PCR) 02/15/23 20:15 WBC RBC Hgb Hct MCV MCH MCHC RDW Plt Count MPV Immature Gran % Neutrophils % Band Neutrophils % Lymphocytes % Monocytes % Eosinophils % Basophils % Metamyelocytes % Myelocytes % Nucleated RBC % Absolute Neutrophils Absolute Lymphocytes Absolute Monocytes Absolute Eosinophils Absolute Basophils RBC Morphology Polychromasia Anisocytosis PT INR APTT VBG pH VBG pCO2 VBG pO2 VBG HCO3 VBG Total CO2 VBG O2 Saturation VBG Base Excess Sodium Potassium Chloride Carbon Dioxide Anion Gap BUN Creatinine Est GFR (CKD-EPI 2020) Glucose Calcium Magnesium Total Bilirubin AST ALT Alkaline Phosphatase Troponin I Cancelled NT-Pro-B Natriuret Pep Total Protein Albumin Procalcitonin TSH COVID-19 Source SARS-CoV-2 (PCR) Influenza Type A (PCR) Influenza Type B (PCR) RSV (PCR) Time Spent with Patient Time Spent with Patient: 35-49 minutes Time was spent: preparing to see the patient(eg.review tests), ordering medications,tests, procedures, referring, communicating with other health healthcare associate, indepentently interpreting results and counseling the patient
[2023-02-16] VITALS (21 sets, daily range): BP systolic 114–157; BP diastolic 64–97; PULSE 69–99; RESP 7–20; TEMP 36.1–36.9; O2SAT 90–98
[2023-02-16] MEDS: Metoprolol 50 MG TAB PO ×4 (01:42→19:56)
[2023-02-16] MEDS: VANCOMYCIN/WATER (PEG) 1 GM/200 ML BAG IV (01:42)
[2023-02-16] MEDS: dilTIAZem 60 MG TAB 90 MG PO ×4 (04:54→22:26)
[2023-02-16] MEDS: Levothyroxine 100 MCG TAB PO (04:55)
[2023-02-16] MEDS: Apixaban 5 MG TAB PO ×2 (07:49→19:56)
[2023-02-16] MEDS: Digoxin 0.125 MG TAB PO (07:50)
[2023-02-16] MEDS: Nystatin 500000 UNITS/5 ML SUSP 5ML CUP PO ×3 (07:50→19:56)
[2023-02-16] MEDS: Ferrous Sulfate 325 MG TAB PO (07:50)
[2023-02-16] MEDS: Cyanocobalamin 500 MCG TAB 1000 MCG PO (07:50)
[2023-02-16] MEDS: CEFEPIME 2 GM in Normal Saline 100 ML IVPB ×2 (09:31→19:58)
--- NOTE | 2023-02-16 10:32 | PDOC.CMPRO ---
- If Service Date Differs Date of service: 02/16/23 Time of Service: 10:32 Care Management Progress Note S/O: Aide was lying in bed when CM met with her. She was pleasantly confused, and engaged well with CM. Per report, the provider will likely change her antibiotics to oral tomorrow, and she may be ready for discharge in the next 24-48 hours. CM will continue to follow. A: Aide is an 82 year old female admitted to [facility] on 02/14/23 with pneumonia, hypoxia, elevated troponin. P: Aide will return to [facility] when ready per MD. She will transport via W/C van or EMS, coordinated by CM. She will follow up with facility providers and her discharge plan of care. CM will continue to follow.
[2023-02-16] MEDS: Docusate Sodium 100 MG/10 ML CUP 200 MG PO (13:55)
--- NOTE | 2023-02-16 17:13 | W.SPSTE ---
Date of service: 02/16/23 Time of Service: 04:00 Subjective Clinical (Bedside) Swallow Evaluation Speech Language Pathology Patient referred for Clinical Swallow Evaluation from [facility] given s/sx aspiration and difficulty chewing noted by nursing. Precautions: DNR/DNI SUBJECTIVE: Patient received awake, unable to communicate wants/needs effectively; unable to demonstrate comprehension of recommendations for safe p.o. intake upon discharge once deemed medically stable.? Patient was largely agreeable throughout. See additional notes in Objective re: cognitive status/behaviors. Patient reports big head pain and heart pain at 4. ? HPI: 82 yo female, living independently prior to recent admission to [facility] for right MCA CVA status post thrombectomy, left hemiplegia/ ignores L side; currently admitted to [facility] for cough and progressive symptoms with bilateral pneumonia by CT. PMhx significant for diastolic dysfunction heart failure, significant valvular disease. Of note per MD: Oxygen supplementation with nebulizers if needed, will be gently hydrated watch for fluid overload with IV Lasix as needed. Per chart, on Level 4 Pureed Solids / 3 Moderately Thickened Liquids. Nursing reports patient was just recently changed to mod thickened liquids as it was not known that patient was on thickened liquids at [facility]. Per CM, D/C plan is to return to [facility] when ready per MD. Predisposing dysphagia risk factors: CVA, CAD Clinical signs of possible chronic dysphagia: PNA Precipitating dysphagia risk factors / triggering event: PNA ? IMPRESSIONS & PLAN: It is somewhat difficulty to differentiate baseline coughing from PNA status from prandial coughing and while voice remains clear and dry throughout trials, she does appear with increased frequency of cough during PO trials, across liquid consistencies (though slightly improved with thickened vs thin liquids). Mental status is too poor for solid chewable textures (oral fixation, open mouth breathing, reduced awareness). Especially given baseline diet reported by Son to RN of puree & thickened liquids, and given patient's reduced cardio-pulmonary status, recommend mildly thickened liquids and puree solids at this time. She appears with poor hyo-laryngeal movement at this time but is with palpable swallow initiation to naturalistic bolus (does not swallow on command). Patient is likely high aspiration risk, with some mitigation to be achieved via recommendations below, but family should be notified that risk is present even with precautions given patient's suspected level of impairment. MBSS is unlikely to lead to significantly altered outcomes unless plan of care/patient/family goals are for aggressive risk management. It could also be useful to determine if thickened liquids do in fact reduce aspiration risk or not, though patient does not appear more comfortable with thin liquids at this time, so I would not push for MBSS unless patient status/tolerance changes or medical team becomes increasingly concerned for dehydration due to dislike of thickened liquids. At this time patient is largely dependent on caregivers for all PO intake anyways. Further HAND SPRING REPAIRER HELPER services: inpatient / patient to be followed while on unit, long-term upon discharge ? Instrumentation: Not likely to change outcomes or recommendations, but may be considered pending goals of care. ? Diet Texture Modification(s): IDDSI Level(s) SOLIDS 4-Pureed Solids LIQUIDS 2-Mildly Thick Liquids Medication Intake: Crushed with puree or moderately thick liquids, followed by 1-2 sips mildly to moderately thickened liquids. RISK MANAGEMENT: HOB upright as tolerated; upright for all PO intake. Encourage physical mobility as tolerated. Oral hygiene Q4h/every 4 hours, before/after PO intake, using friction with toothbrush on all oral structures as tolerated, suction PRN ? Level of Assistance/Supervision: Assistive feeding only by trained staff/family PO intake only when awake/alert? Strategies/Adaptations/Assistive Equipment: Reduce auditory and/or visual distractions when eating Provide verbal and/or visual cues to use recommended strategies Small sips and bites when eating Slow rate of intake Posture/Positioning Needs: Avoid meals/snacks 2-3 hours prior to reclining/sleeping, Sleep with head of bed elevated to reduce likelihood of nocturnal reflux PFSH All Active Problems?(Updated 02/14/23 @ 23:17 by Gabino Giordano) Elevated troponin level not due to acute coronary syndrome (Acute) CVA (cerebral vascular accident) (Chronic) Hypoxia (Acute) Pneumonia (Acute) Shortness of breath (Acute) Medical History?(Updated 02/14/23 @ 23:17 by Gabino Giordano) Atrial fibrillation with controlled ventricular rate CAD (coronary artery disease), [place] coronary artery HTN (hypertension) Hypothyroidism (acquired) Tachy-inessa syndrome ? OBJECTIVE: Sp02: 90+% Respiratory: supplemental oxygen, tolerates well, weak baseline and prandial cough Mental Status: Alert - oriented to birthdate but not year. Not oriented to place (home) or current date, year etc. Recall of current events impaired Poor sensory awareness even R sided: patient requires hand over hand assist to initiate oral care despite being agreeable. Patient often responding No but appearing to accept PO trials happily. Speech: intelligible but with limited output Oral Motor Exam: ? Dentition ? Natural dentition ? Fair condition ? Oral Mucosa ? Poor oral care ? Unable to perform cranial nerve exam due to patient inability to respond/follow instructions. ? Volitional Swallow ? Absent swallow initiation, requires presence of bolus to initiate. ? Food items tested: ?? Ice: x1 IDDSI 0: x 2 sips via 1/2 tsp - immediate cough on both IDDSI 2: x 5 sips via tsp - delayed weak cough IDDSI 3: x7 sips via tsp - delayed weak cough IDDSI 4: x6 bites via tsp - 1/2x delayed weak cough IDDSI 7: x1 bite ena cracker Pill/tablet: crushed in pudding Oral phase: Leakage from mouth Difficulty with bolus manipulation Difficulty with a-p transport Difficulty chewing Residue Pharyngeal phase: Delayed swallow initiation Reduced hyolaryngeal elevation/excursion Cough after swallow NO Voice change after swallow? Provided education to: Nursing Topics Addressed: anatomy/physiology of swallowing mechanism, overt s/sx to monitor for re: potential aspiration of food / liquids, recommendations for improved oral care, relationship between respiratory function changes and deglutition, Rationale for recommendations as outlined below, Other Outcome: Verbalized/demonstrated understanding Goals: Care team will be independent with aspiration precautions, diet modifications, and safe swallowing strategies. Patient/caregiver will verbalize/demonstrate understanding of education r/t anatomy/physiology of normal vs disordered swallowing mechanism, overt s/sx to monitor for re: potential aspiration of food liquids, recommendations for improved oral care, relationship between respiratory function changes and deglutition, rationale for risk management strategies Total Time Spent: 45 min Coding Diagnoses CPT Codes EVALUATE SWALLOWING FUNCTION - [id number] ([id number])
--- NOTE | 2023-02-16 18:04 | PGE_ITS ---
Date of Service Date of service: 02/16/23 Time of Service: 18:04 Assessment and Plan Assessment and plan (1) Pneumonia: Status: Acute Assessment and plan: continue day 3 cefepime and vanco while awaiting cultures, down step to augmentin if continues to improve scheduled duonebs wean oxygen as able. (2) Elevated troponin level not due to acute coronary syndrome: Status: Acute Assessment and plan: Only slight elevation in troponins with patient having significant history of CAD without evidence of acute ischemia and remained flat continue beta apolinar, statin and apixaban. no further cardiac work up needed at this time (3) CAD (coronary artery disease), [place] coronary artery: Assessment and plan: Slight elevation in troponins but this is most likely secondary to heart strain with pneumonia. Monitor closely for heart failure which is usually diastolic dysfunction with significant mitral valve disease. (4) Atrial fibrillation with controlled ventricular rate: Assessment and plan: continue Lanoxin, metoprolol and Cardizem as an outpatient. Split dose of Cardizem at 90 mg every 6 hours and continue metoprolol twice daily along with Lanoxin daily. Patient was given IV diltiazem in the ED (5) Hypothyroidism (acquired): Assessment and plan: Stable on supplement which will be continued the same. discussed with DR Cisneros Subjective Subjective Patient reports: no new complaints, tolerating liquids well (and purreed diet) and afebrile; denies shortness of breath Exam Const General: comfortable and no acute distress Nutritional Appearance: thin Orientation: alert HENMT Head: normal to inspection Ears: external ears normal General nose exam: external nose normal Mouth: abnormal oral mucosae (white coat on tongue) Eyes General: appearance normal, both eyes and all related structures Neck Neck: normal visual inspection and no JVD Resp Effort & Inspection: normal respiratory effort Auscultation: rhonchi lower bilaterally and no wheezes Cardio Rate: regular rate Skin General skin exam: no rashes or lesions noted Extrem General: other (left side flaccid) Objective Last Vital Signs Temp 36.2 C L 02/16/23 15:10 Pulse 99 H 02/16/23 17:24 Resp 18 02/16/23 17:15 BP 139/64 02/16/23 15:10 Pulse Ox 98 02/16/23 17:24 Time Spent with Patient Time Spent with Patient: 35-49 minutes Time was spent: preparing to see the patient(eg.review tests), obtaining and/or reviewing separately otained hiistory, ordering medications,tests, procedures and indepentently interpreting results
[2023-02-16] MEDS: Atorvastatin 40 MG TAB 80 MG PO (19:56)
[2023-02-16] MEDS: Pantoprazole 40 MG TABCR PO (22:27)
[2023-02-17] VITALS (18 sets, daily range): BP systolic 94–144; BP diastolic 53–74; PULSE 74–90; RESP 3–20; TEMP 36.2–36.9; O2SAT 90–96
--- NOTE | 2023-02-17 | DI.RAD_ITS ---
Exam(s) XR PORTABLE CHEST AP EXAM: XR PORTABLE CHEST AP CLINICAL HISTORY: hypoxia, worsening resp status TECHNIQUE: 2D digital imaging was performed. COMPARISON: CT CT CHEST PE CTA from 02/14/2023 CR XR PORTABLE CHEST AP from 02/14/2023 FINDINGS: Lungs are suboptimally inflated. Mild cardiomegaly and pacemaker again noted. There has been no si gnificant change in the appearance of the lungs, with with diffuse bilateral infiltrates. IMPRESSION: Stable bilateral pulmonary infiltrates. DATA REPOSITORY: RADIATION DOSE DELIVERED:
[2023-02-17] MEDS: VANCOMYCIN/WATER (PEG) 1 GM/200 ML BAG IV (01:39)
[2023-02-17] MEDS: Metoprolol 50 MG TAB PO ×3 (01:39→13:28)
[2023-02-17] MEDS: dilTIAZem 60 MG TAB 90 MG PO ×4 (04:27→21:32)
[2023-02-17] MEDS: Levothyroxine 100 MCG TAB PO (04:27)
--- NOTE | 2023-02-17 07:15 | CHAPLAIN ---
Aide was in bed when I visited. She turned her to look in the other direction for the whole conversation, but continue talking with me. She responded to some questions and was pleasant. I explained my role and offered support.
[2023-02-17] MEDS: Nystatin 500000 UNITS/5 ML SUSP 5ML CUP PO ×3 (08:08→19:45)
[2023-02-17] MEDS: Digoxin 0.125 MG TAB PO (08:08)
[2023-02-17] MEDS: Docusate Sodium 100 MG/10 ML CUP 200 MG PO (08:08)
[2023-02-17] MEDS: CEFEPIME 2 GM in Normal Saline 100 ML IVPB ×2 (08:10→19:43)
[2023-02-17] MEDS: Apixaban 5 MG TAB PO ×2 (08:10→19:39)
[2023-02-17] MEDS: Cyanocobalamin 500 MCG TAB 1000 MCG PO (08:10)
[2023-02-17] MEDS: Ferrous Sulfate 325 MG TAB PO (08:10)
[2023-02-17] MEDS: Normal Saline Flush 10 ML SYR IVP ×2 (08:11→19:43)
--- NOTE | 2023-02-17 10:37 | W.PM.PROGNOT ---
Date of Service Date of service: 02/17/23 Time of Service: 10:37 Assessment and Plan Assessment and plan (1) Pneumonia: Status: Acute Assessment and plan: continue day 4 cefepime will discontinue vanco, cultures negative, down step to augmentin if continues to improve and discharge back to rehab tomorrow if stable. scheduled duonebs continue to wean oxygen as able. (2) Elevated troponin level not due to acute coronary syndrome: Status: Ruled-out Assessment and plan: Only slight elevation in troponins with patient having significant history of CAD without evidence of acute ischemia and remained flat continue beta apolinar, statin and apixaban. no further cardiac work up needed at this time (3) CAD (coronary artery disease), [place] coronary artery: Assessment and plan: Slight elevation in troponins but this is most likely secondary to heart strain with pneumonia. Monitor closely for heart failure which is usually diastolic dysfunction with significant mitral valve disease. (4) Atrial fibrillation with controlled ventricular rate: Assessment and plan: continue Lanoxin, metoprolol and Cardizem as an outpatient. Split dose of Cardizem at 90 mg every 6 hours and continue metoprolol twice daily along with Lanoxin daily. Patient was given IV diltiazem in the ED (5) Hypothyroidism (acquired): Assessment and plan: Stable on supplement which will be continued the same. discussed with DR Rodriguez Subjective Subjective Patient reports: no new complaints, tolerating liquids well and afebrile; denies shortness of breath Exam Const General: comfortable and no acute distress Nutritional Appearance: thin Orientation: alert HENMT Head: normal to inspection Ears: external ears normal General nose exam: external nose normal Mouth: abnormal oral mucosae (white coat on tongue) Eyes General: appearance normal, both eyes and all related structures Neck Neck: normal visual inspection and no JVD Resp Effort & Inspection: normal respiratory effort Auscultation: rhonchi lower bilaterally and no wheezes Cardio Rate: regular rate Skin General skin exam: no rashes or lesions noted Extrem General: other (left side flaccid) Objective Last Vital Signs Temp 36.2 C L 02/17/23 07:15 Pulse 90 02/17/23 08:08 Resp 18 02/17/23 07:15 BP 131/74 02/17/23 07:15 Pulse Ox 91 L 02/17/23 08:31 Time Spent with Patient Time Spent with Patient: 25-34 minutes Time was spent: preparing to see the patient(eg.review tests), obtaining and/or reviewing separately otained hiistory, ordering medications,tests, procedures, referring, communicating with other health health care coordinator and indepentently interpreting results
[2023-02-17 11:57] LABS: HCT 36.8 % (36.0-46.0); HGB 10.9 g/dL (11.2-15.7); MCH 27.1 pg (27.0-33.0); MCHC 29.6 % (32.0-36.0); MCV 92 fL (80-95); MPV 10.3 fL (8.0-11.0); Platelet Count 222 10^3/uL (130-400); RBC 4.02 10^6/uL (3.93-5.22); RDW 19.7 % (11.7-14.6); RDW-SD 66.2 fL; WBC 11.28 10^3/uL (4.4-10.8)
[2023-02-17 12:11] LABS: Absolute Lymphocyte Count 1.58 10^3/uL (1.2-3.4); Absolute Monocyte Count 0.68 10^3/uL (0.1-0.8); Absolute Neutrophil Count 8.46 10^3/uL (1.2-6.7); Anion Gap 9.5 mmol/L (3-11); Atypical Lymphocytes % 1; BUN 26 mg/dL (7-18); Bands % 5; CO2 28.5 mmol/L (21.0-32.0); CREATININE 1.1 mg/dL (0.55-1.02); Chloride 111 mmol/L (98-107); Diff Comment Manual Differential; Estimated GFR 49.55 (mL/min/1.73m2); Glucose 164 mg/dL (74-106); Magnesium 1.9 mg/dL (1.8-2.4); Metamyelocytes % 3; Myelocytes % 2; RBC Morphology Normal; Sodium 149 mmol/L (136-145)
[2023-02-17 12:14] LABS: Potassium 2.9 mmol/L (3.5-5.1)
[2023-02-17] MEDS: POTASSIUM CHLORIDE 10 MEQ/100 ML BAG 100 MEQ IVPB ×2 (13:48→15:25)
--- NOTE | 2023-02-17 15:53 | PDOC.CMPRO ---
- If Service Date Differs Date of service: 02/17/23 Time of Service: 15:53 Care Management Progress Note S/O: Aide was lying in bed when CM met with her and her grand-daughter, Kayleen who shared concerns re: Aide's presentation. CM coordinated EMERGENCY COMMUNICATIONS OFFICER visit, will support Palliative consult coordination. CM will continue to follow. A: Aide is an 82 year old female admitted to [facility] on 02/14/23 with pneumonia, hypoxia, elevated troponin. P: Aide will return to [facility] when ready per MD. She will transport via W/C van or EMS, coordinated by CM. She will follow up with facility providers and her discharge plan of care. CM will continue to follow.
--- NOTE | 2023-02-17 16:30 | RT.EKG_ITS ---
APPROVED REPORT Exam: Resting ECG Reason for Exam: Pain Patient Location: I HR:88 bpm ECG Measurements Heart Rate 88 AXIS NH [id number] P [id number] QRSd 86 QRS 0 QT 472 T 244 QTc 572 Conclusion Atrial fibrillation...V-rate 66- 89, irreg A-activity Ventricular premature complex...V complex w/ short R-R interval Nonspecific T abnormalities, diffuse leads...T <-0.10mV, ant/lat/inf Prolonged QT interval...QTc >500mS Baseline wander in lead(s) V3,V4
[2023-02-17] MEDS: Potassium Chloride Liquid 20 MEQ PKT PO (17:05)
[2023-02-17] MEDS: Furosemide 100 MG/10 ML VIAL 80 MG IVP (17:06)
[2023-02-17] MEDS: LORazepam 2 MG/ML VIAL 0.5 MG IVP (17:08)
[2023-02-17] MEDS: Acetaminophen 325 MG TAB 650 MG PO (17:10)
[2023-02-17] MEDS: Atorvastatin 40 MG TAB 80 MG PO (19:39)
[2023-02-17] MEDS: Pantoprazole 40 MG TABCR PO (21:32)
[2023-02-17] MEDS: HYDROmorphone 2 MG/ML SYR 0.25 MG IVP (23:40)
[2023-02-18] VITALS (11 sets, daily range): BP systolic 90–139; BP diastolic 49–70; PULSE 61–102; RESP 3–18; TEMP 36.2–36.7; O2SAT 90–95
[2023-02-18] MEDS: dilTIAZem 60 MG TAB 90 MG PO ×2 (04:08→13:16)
[2023-02-18] MEDS: HYDROmorphone 2 MG/ML SYR 0.25 MG IVP (04:40)
[2023-02-18] MEDS: Levothyroxine 100 MCG TAB PO (05:45)
[2023-02-18 06:48] LABS: HCT 36.1 % (36.0-46.0); HGB 10.6 g/dL (11.2-15.7); MCHC 29.4 % (32.0-36.0); MCV 92 fL (80-95); MPV 10.1 fL (8.0-11.0); Platelet Count 217 10^3/uL (130-400); RBC 3.92 10^6/uL (3.93-5.22); RDW 19.9 % (11.7-14.6); WBC 12.64 10^3/uL (4.4-10.8)
[2023-02-18 07:16] LABS: Anion Gap 8.3 mmol/L (3-11); BUN 27 mg/dL (7-18); CO2 29.7 mmol/L (21.0-32.0); CREATININE 1.2 mg/dL (0.55-1.02); Calcium 8.8 mg/dL (8.5-10.1); Chloride 113 mmol/L (98-107); Estimated GFR 44.64 (mL/min/1.73m2); Glucose 137 mg/dL (74-106); Potassium 3.5 mmol/L (3.5-5.1); Sodium 151 mmol/L (136-145)
[2023-02-18 07:23] LABS: Absolute Eosinophil Count 0.25 10^3/uL (0.0-0.7); Absolute Lymphocyte Count 1.14 10^3/uL (1.2-3.4); Absolute Monocyte Count 0.63 10^3/uL (0.1-0.8); Absolute Neutrophil Count 9.61 10^3/uL (1.2-6.7); Bands % 11; Diff Comment Manual Differential; Metamyelocytes % 5; Myelocytes % 3
[2023-02-18 07:24] LABS: RBC Morphology Normal
[2023-02-18] MEDS: CEFEPIME 2 GM in Normal Saline 100 ML IVPB (08:30)
--- NOTE | 2023-02-18 11:12 | PT.INNT ---
Date of service: 02/18/23 Time of Service: 10:57 PT Notes Visit Reasons: Pneumonia, Hypoxia, Elavated Troponin Patient is not appropriate for PT at this time. Recommend mechanical lift only for all transfers due to chronic hemiplegia, severe dementia, and lack of safety awareness. Thank you for the opportunity to participate in the care of this patient. Bailey Stuart PT, DPT, CLT [facility] [place], [place]
[2023-02-18] MEDS: Nystatin 500000 UNITS/5 ML SUSP 5ML CUP PO ×2 (11:28→13:19)
--- NOTE | 2023-02-18 11:53 | DSE_ITS ---
Date of service: 02/18/23 Time of Service: 11:53 DS: Diagnosis Discharge Diagnosis (1) Pneumonia: Status: Acute (2) Elevated troponin level not due to acute coronary syndrome: Status: Ruled-out (3) CAD (coronary artery disease), [place] coronary artery: (4) Atrial fibrillation with controlled ventricular rate: (5) Hypothyroidism (acquired): Discharge Plan Disposition Patient Disposition: Longterm Facility(SNF) Condition: Deteriorating Discharge Details Reason For Visit: Pneumonia, Hypoxia, Elavated Troponin Admit Date/Time: 02/14/23 19:57 Admit Provider: Gabino Giordano Attending Provider: Gabino Giordano Primary Care Provider: David Rivera Hospital Course Hospital Course: This is an 82-year-old lady who recently has had 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 Her past medical problems include Afib, significant CAD status post bypass surgery with mitral valve disease which has not been surgically treated. She has been hospitalized and in rehab just recently now with cough and progressive symptoms with bilateral pneumonia by CT.? She also may have some interstitial edema and does have a history of possible diastolic dysfunction heart failure though the ED provider did see an echocardiogram revealing mostly preserved left ventricular ejection fraction.? She does have significant valvular disease and because of her pneumonia may have increased troponin secondary to strain along with hypoxemia.? She was treated aggressively for hospital-acquired pneumonia with vancomycin pharmacy dosing and cefepime, avoided Zosyn with vancomycin with increased chance of renal dysfunction.? She already had slight increase in her baseline creatinine.?Blood cultures are negative at 72 hours. Oxygen supplementation with nebulizers as needed were given.? She had gentle hydration with watching for fluid overload, which was treated with IV Lasix as needed.?She did have a slight bump in her troponins which was most likely secondary to cardiac strain with her pneumonia. Son understands prognosis with the patient already having significant heart disease and now with pneumonia status post devastating CVA with patient living independently prior to this recent admission with stroke.? She is a DNR/DNI. She was kept comfortable with the occasional dose of Ativan when she showed signs of distress. She has a Yuan catheter, we will leave in place.? She was evaluated by Speech therapy, they recommend mildly thickened liquids and puree solids at this time. Patient is likely high aspiration risk. She is failing, not eating or drinking much and sleeping a lot.? She is taking oral meds when awake.? Her sodium runs a little high, today 151, and with her pulmonary edema should be on fluid restrictions, her potassium was low and repleted with continued oral repla cement with consideration to furosemide, other labs are unremarkable. She was started on furosemide 20 mg daily to be adjusted as necessary. ??Recommend BMP in 5 days. She is being discharged back to [facility].? She should finish the antibiotic course, to complete [address] Rodriguez Home Meds and New Rx's Prescriptions: New nystatin 100,000 unit/mL Suspension 500,000 units PO TID Qty: 0 0RF potassium chloride 20 mEq Packet 20 meq PO QMEALS Qty: 0 0RF docusate sodium [Colace] 100 mg Capsule 100 mg PO TID PRN PRNQty: 0 0RF cefpodoxime 200 mg tablet 200 mg PO BID Qty: 7 0RF Rx Instructions: must administer with a meal/food To complete 7d course furosemide 20 mg tablet 20 mg PO DAILY Qty: 30 0RF Continued atorvastatin [Lipitor] 80 mg Tablet 80 mg PO QHS miconazole nitrate 2 % Powder TOPICAL QSHIFT cyanocobalamin (vitamin B-12) 1,000 mcg Tablet 1,000 mcg PO QDAY docusate sodium 50 mg Capsule PO QDAY diltiazem HCl 360 mg Capsule,Extended Release 24hr 360 mg PO QDAY levothyroxine 100 mcg Tablet 100 mcg PO QDAY pantoprazole [Protonix] 40 mg Tablet,Delayed Release (Dr/Ec) 40 mg PO QHS metoprolol tartrate 50 mg Tablet 50 mg PO BID digoxin 125 mcg (0.125 mg) Tablet 125 mcg PO QDAY ferrous sulfate 324 mg (65 mg iron) Tablet,Delayed Release (Dr/Ec) PO QDAY apixaban 5 mg Tablet 5 mg PO BID Discharge Instructions Additional Instructions: Start furosemide 20 mg daily; adjust clinically. Continue Cefpodoxime 200 mg BID to complete 7 day course - 7 more doses; (CrCl 36 ml/min); continue nebulizers prn; oxygen as needed. Recommend BMP in 5 days to check sodium and potassium. Diet recommendations per Speech Therapy in discharge summary. Recommend fluid restriction. Referrals: Dayanara Liu [SPEECH LANGUAGE PATHOLOGIST] - (Follow up as appropriate at [facility]) Activity:: Activity as Tolerated Equipment/Supplies:: No Equipment Needed Diet:: As Tolerated DS: Summary Time Spent with Patient providing and/or coordinating discharge services: Greater than 30 minutes Status at Discharge Functional status at discharge: bed bound Overall status at discharge: patient is not back to baseline Mental Status: other (dementia - at baseline) Speech and Movement: delayed speech, slowed movement and other Mood: anxious mood and other (dementia - at baseline) Affect: labile affect Exam Const General: comfortable and no acute distress Nutritional Appearance: thin Orientation: alert HENMT Head: normal to inspection Ears: external ears normal General nose exam: external nose normal Mouth: abnormal oral mucosae (white coat on tongue) Eyes General: appearance normal, both eyes and all related structures Neck Neck: normal visual inspection and no JVD Resp Effort & Inspection: normal respiratory effort Auscultation: rhonchi lower bilaterally and no wheezes Cardio Rate: regular rate Skin General skin exam: no rashes or lesions noted Extrem General: other (left side flaccid) Psych Mental Status: other (dementia - at baseline) Speech and Movement: delayed speech, slowed movement and other Mood: anxious mood and other (dementia - at baseline) Affect: labile affect DS: Data Vitals/I&O Vitals and I&O: Vital Signs Temperature 36.2 C L 02/18/23 11:34 Temperature Source Tympanic 02/18/23 11:34 Pulse 102 H 02/18/23 11:34 Pulse Rhythm Regular 02/18/23 04:17 Pulse 148 H 02/14/23 22:32 Respiratory Rate 18 02/18/23 11:34 Respiratory Effort Non-Labored 02/18/23 04:17 Respiratory Depth Shallow 02/18/23 04:17 Respiratory Pattern Normal 02/18/23 04:17 Blood Pressure 139/70 02/18/23 11:34 Blood Pressure Mean 89 02/14/23 22:32 Blood Pressure Position Supine 02/14/23 15:13 Pulse Oximetry 95 02/18/23 11:34 Oxygen Delivery Method Nasal Cannula 02/18/23 11:34 Oxygen Flow Rate 2.5 02/18/23 11:34 Pain Level 0 02/17/23 23:54 Comment VS checked prior to metoprolol (Lopressor) administration. 02/15/23 13:42 Intake & Output 02/17/23 02/17/23 02/18/23 11:59 23:59 11:59 Intake Total 400 / 600 200 / 600 100 / 100 Output Total 600 / 600 Balance 400 / 0 -400 / 0 100 / 100 Weight 64.4 kg 65 kg Intake: IV 400 / 600 200 / 600 100 / 100 Output: Urine 600 / 600 Other: Urine Color Light Jonna Yellow Urine Appearance Clear Clear Clear Stool Size Moderate Moderate Stool Characteristics Liquid Soft Brown Data Completed and Pending Labs on day of discharge: Labs from last 24 hours 02/18/23 02/18/23 02/17/23 06:20 06:20 11:35 WBC 12.64 H 11.28 H RBC 3.92 L 4.02 Hgb 10.6 L 10.9 L Hct 36.1 36.8 MCV 92 92 MCH 27.0 27.1 MCHC 29.4 L 29.6 L RDW 19.9 H 19.7 H Plt Count 217 222 MPV 10.1 10.3 Immature Gran % 0.0 0.0 Neutrophils % 65.0 70.0 Band Neutrophils % 11 5 Lymphocytes % 9.0 13.0 Atypical Lymphs % 1 Monocytes % 5.0 6.0 Eosinophils % 2.0 0.0 Basophils % 0.0 0.0 Metamyelocytes % 5 3 Myelocytes % 3 2 Nucleated RBC % 1.0 H 1.0 H Absolute Neutrophils 9.61 H 8.46 H Absolute Lymphocytes 1.14 L 1.58 Absolute Monocytes 0.63 0.68 Absolute Eosinophils 0.25 0.00 Absolute Basophils 0.00 0.00 RBC Morphology Normal Normal Sodium 151 H Potassium 3.5 Chloride 113 H Carbon Dioxide 29.7 Anion Gap 8.3 BUN 27 H Creatinine 1.2 H Est GFR (CKD-EPI 2020) 44.64 Glucose 137 H Calcium 8.8 Magnesium 2.0 02/17/23 11:35 WBC RBC Hgb Hct MCV MCH MCHC RDW Plt Count MPV Immature Gran % Neutrophils % Band Neutrophils % Lymphocytes % Atypical Lymphs % Monocytes % Eosinophils % Basophils % Metamyelocytes % Myelocytes % Nucleated RBC % Absolute Neutrophils Absolute Lymphocytes Absolute Monocytes Absolute Eosinophils Absolute Basophils RBC Morphology Sodium 149 H Potassium 2.9 L Chloride 111 H Carbon Dioxide 28.5 Anion Gap 9.5 BUN 26 H Creatinine 1.1 H Est GFR (CKD-EPI 2020) 49.55 Glucose 164 H Calcium 9.0 Magnesium 1.9 Preliminary micro results at discharge 02/14/23 17:52 Blood Culture - Preliminary Blood NO GROWTH 72 HOURS 02/14/23 15:32 Blood Culture - Preliminary Blood NO GROWTH 72 HOURS PFSH All Active Problems (Updated 02/17/23 @ 11:52 by Joslyn Quiroz, CONTROL ROOM TENDER) CVA (cerebral vascular accident) (Chronic) Hypoxia (Acute) Pneumonia (Acute) Shortness of breath (Acute) Medical History (Updated 02/17/23 @ 11:52 by Joslyn Quiroz CONTROL ROOM TENDER) Atrial fibrillation with controlled ventricular rate CAD (coronary artery disease), [place] coronary artery HTN (hypertension) Hypothyroidism (acquired) Tachy-inessa syndrome Social History Smoking/Tobacco Use Status: Never Smoking risk assessment performed?: Yes Alcohol Intake: never Substance use type: does not use Do you feel safe at home: Yes Do you feel safe in your relationship?: Yes Time Spent with Patient Time Spent with Patient: 45-69 minutes Time was spent: preparing to see the patient(eg.review tests), ordering medications,tests, procedures, referring, communicating with other health daytime caregiver, indepentently interpreting results, counseling the patient and care coordination
[2023-02-18] MEDS: Metoprolol 50 MG TAB PO (13:17)
[2023-02-18] MEDS: Acetaminophen 325 MG TAB 650 MG PO (13:19)
[2023-02-18] MEDS: Apixaban 5 MG TAB PO (13:21)
[2023-02-18] MEDS: Digoxin 0.125 MG TAB PO (13:21)
--- NOTE | 2023-02-18 15:24 | CMDISCH_ITS ---
- If Service Date Differs Date of service: 02/18/23 Time of Service: 15:24 LACE Index Scoring Tool - Questions: Length of Stay (in days): 4 - 6 Acuity (Admit via E.D.?): Yes Comorbidities: Cerebrovascular Disease E.D. Visits: 1 - Answers: Total Score: 9 Risk of Readmission: Low Risk Care Management Discharge Reason for Hospitalization: Pneumonia, Hypoxia, Elevated troponin Discharge Plan: Aide will discharge to [facility] when dany cornejo per . She will transport via [facility]. Aide and her family met with Dr. Hernandez of Palliative care today and expressed wanting to bring Aide home on Hospice-barriers identified through [facility]: CTI and PCP requirements as well as DME delivery limitations. Patient/Family Education Needs: Review of discharge instructions, care needs upon discharge. Services Needed at Discharge: [facility] Transportation ([facility])
== END 2023-02-18 15:21 | disposition skilled nursing facility (03) | DRG 194 ==
LOC: ER 20:21 → MS 22:52
PROVIDERS: Nurse Practitioner Acute Care; Nurse Practitioner Family; Admitting Provider Family Medicine; Emergency Provider Emergency Medicine; PCP Family Medicine; Visit Provider Family Medicine
DX: J18.9 Pneumonia, unspecified organism (principal); I48.20 Chronic atrial fibrillation, unspecified; I50.30 Unspecified diastolic (congestive) heart failure; I69.354 Hemiplegia and hemiparesis following cerebral infarction affecting left non-dominant side; R09.02 Hypoxemia; Y95 Nosocomial condition; I25.10 Atherosclerotic heart disease of native coronary artery without angina pectoris; I34.0 Nonrheumatic mitral (valve) insufficiency; E03.9 Hypothyroidism, unspecified; I51.9 Heart disease, unspecified; Z66 Do not resuscitate; Z95.1 Presence of aortocoronary bypass graft; Z95.0 Presence of cardiac pacemaker; I49.5 Sick sinus syndrome; R74.8 Abnormal levels of other serum enzymes
CPT/HCPCS: 36415; 71275; 80048; 80053; 82805; 84145; 85027; 87040; 87081; 87637; 92610; 93005; 94640; 96365; 96366; 96375; 99285; 71045; 83735; 83880; 84443; 84484; 85025; 85610; 85730; 93010; 94760; 99223; 99233; 99239; J1170; J1940; J1941; J2060; J2543; J3480; J3490; J7613; J7644